=== PATIENT | female | born 1955 | race Caucasian/White ===

== ENCOUNTER → 2019-02-20 | Outpatient (CLI) | payer BC ==
--- NOTE | 2019-02-20 13:47 | MM ---
Reason for exam: screening (asymptomatic). Last mammogram was performed 7 years and 10 months ago. History: Benign stereotactic core biopsy of the left breast, January 23, 2004. Benign stereotactic core biopsy of the left breast, January 23, 2004. Physical Findings: A clinical breast exam by your physician is recommended on an annual basis and results should be correlated with mammographic findings. MG 3D Screening Mammo W/Cad Bilateral CC and MLO view(s) were taken. Prior study comparison: April 13, 2011, bilateral digital screening mammo w/CAD. March 27, 2010, bilateral digital screening mammogram. The breast tissue is heterogeneously dense. This may lower the sensitivity of mammography. Previous mammotome biopsy in the left breast. There is no discrete abnormality. No significant changes when compared with prior studies. ASSESSMENT: Negative, BI-RAD 1 RECOMMENDATION: Routine screening mammogram of both breasts in 1 year.
--- NOTE | 2019-02-21 10:20 | BD ---
EXAMINATION TYPE: Axial Bone Density DATE OF EXAM: 02/20/2019 COMPARISON: 2010 CLINICAL HISTORY: disorder of bone Height: 5'1 Weight: 134 FRAX RISK QUESTIONS: Secondary Osteoporosis: RISK FACTORS HISTORY OF: Diet low in dairy products/other sources of calcium: y Postmenopausal woman: y MEDICATIONS: Additional Medications: Additional History: EXAM MEASUREMENTS: Bone mineral densitometry was performed using the [employer] System. Bone mineral density as measured about the Lumbar spine is: ----- L1-L4(G/cm2): 1.188 T Score Values are as follows: ----- L2: -0.3 ----- L3: 0.2 ----- L4: 0.3 ----- L1-L4: 0.1 Bone mineral density has: Decreased -0.08% since study of: 04/13/2011 Bone mineral density about the R hip (g/cm2): 0.782 Bone mineral density about the L hip (g/cm2): 0.756 T Score values are as follows: -----R Neck: -1.8 -----L Neck: -2.0 -----R Total: -1.1 -----L Total: -1.2 Bone mineral density has: Decreased -7.8% since study of: 04/13/2011 IMPRESSION: Osteopenia (T Score between -2.5 and -1). There is slightly increased risk of fracture and the patient may be considered for treatment. Re-Screen 2-5 years. NOTE: T-SCORE=SD OF THE YOUNG ADULT MEAN.
== END | disposition home or self-care (01) ==
LOC: RADMAMWWP 06:48
PROVIDERS: ATTEND Obstetrics & Gynecology
DX: Z12.31 Encounter for screening mammogram for malignant neoplasm of breast (principal); M85.80 Other specified disorders of bone density and structure, unspecified site
CPT/HCPCS: 77063; 77067; 77080

== ENCOUNTER → 2020-09-18 | Outpatient (CLI) | payer BC, MEDICARE ==
[2020-09-18 09:08] LABS: HCT 43.7 % (34.0-46.0); HGB 13.6 gm/dL (11.4-16.0); MCH 29.8 pg (25.0-35.0); MCHC 31.2 g/dL (31.0-37.0); MCV 95.4 fL (80.0-100.0); Mean Platelet Volume 7.3; Platelet Count 215 k/uL (150-450); RBC 4.58 m/uL (3.80-5.40); RDW 12.8 % (11.5-15.5); WBC 4.1 k/uL (3.8-10.6)
[2020-09-18 09:29] LABS: Albumin 4.2 g/dL (3.5-5.0); Calcium 9.7 mg/dL (8.4-10.2); Potassium 4.6 mmol/L (3.5-5.1); Total Bilirubin 0.8 mg/dL (0.2-1.3); Total Protein 7.1 g/dL (6.3-8.2)
[2020-09-18 09:45] LABS: T4, Free (Free Thyroxine) 0.98 ng/dL (0.78-2.19)
--- NOTE | 2020-09-18 11:59 | BD ---
EXAMINATION TYPE: Axial Bone Density DATE OF EXAM: 09/18/2020 COMPARISON: 02.20.2019 CLINICAL HISTORY: 65 YR OLD FEMALE....ICD-10 CODE: M85.88 DISORDER OF BONE Height: 60.8 Weight: 132 FRAX RISK QUESTIONS: NOTHING TO NOTE HERE RISK FACTORS HISTORY OF: Postmenopausal woman: YES, AT ABOUT 54 YRS OLD Hyperparathyroidism: NO Adrenal Insufficiency: NO MEDICATIONS: Additional Medications: VIT D3 Additional History: SEASONAL ALLERGIES EXAM MEASUREMENTS: Bone mineral densitometry was performed using the [employer] System. Bone mineral density as measured about the Lumbar spine is: ----- L1-L4(G/cm2): 1.247 T Score Values are as follows: ----- L2: -0.1 ----- L2: -0.1 ----- L3: 0.9 ----- L4: 1.0 ----- L1-L4: 0.6 Bone mineral density has: Increased 5.4% SINCE LAST STUDY....02.20.2019 Bone mineral density about the R hip (g/cm2): 0.912 Bone mineral density about the L hip (g/cm2): 0.874 T Score values are as follows: -----R Neck: -2.1 -----L Neck: -2.0 -----R Total: -0.8 -----L Total: -1.1 Bone mineral density has: Increased 3.5% SINCE LAST STUDY....02.20.2019 FRAX%s: THERE IS A 17.7% CHANCE FOR A MAJOR OSTEOPOROTIC FX AND A 3.3% FOR HIP.......PROBABILITY F OR FX IN 10 YRS TIME IMPRESSION: Osteopenia NOTE: T-SCORE=SD OF THE YOUNG ADULT MEAN.
[2020-09-18 22:55] LABS: Hemoglobin A1C 5.8 % (4.0-6.0)
--- NOTE | 2020-09-21 10:56 | MM ---
Reason for exam: screening (asymptomatic). Last mammogram was performed 1 year and 7 months ago. History: Benign stereotactic core biopsy of the left breast, January 23, 2004. Benign stereotactic core biopsy of the left breast, January 23, 2004. Physical Findings: A clinical breast exam by your physician is recommended on an annual basis and results should be correlated with mammographic findings. MG 3D Screening Mammo W/Cad Bilateral CC and MLO view(s) were taken. Prior study comparison: February 20, 2019, bilateral MG 3d screening mammo w/cad. April 13, 2011, bilateral digital screening mammo w/CAD. The breast tissue is heterogeneously dense. This may lower the sensitivity of mammography. Benign appearing bilateral calcifications. Previous mammotome biopsy in the left breast. No significant changes when compared with prior studies. ASSESSMENT: Benign, BI-RAD 2 RECOMMENDATION: Routine screening mammogram of both breasts in 1 year.
== END | disposition home or self-care (01) ==
LOC: RADMAMWWP 07:22
PROVIDERS: ATTEND Obstetrics & Gynecology
DX: Z12.31 Encounter for screening mammogram for malignant neoplasm of breast (principal); M85.80 Other specified disorders of bone density and structure, unspecified site; Z13.29 Encounter for screening for other suspected endocrine disorder
CPT/HCPCS: 77063; 77067; 77080; 80053; 80061; 83036; 84439; 84443; 84481; 85027